=== PATIENT | female | born 1955 | race Two or more races ===

== ENCOUNTER 2025-03-04 07:35 | Inpatient (IN) | payer BC, OTHER ==
[~2025-03-04] VITALS: Ht 177.8 cm; Wt 68.0 kg
--- NOTE | 2025-03-04 08:51 | ED.PDOC ---
GI ASSESSMENT HPI Comments 69-YEAR-OLD FEMALE PRESENTS HERE WITH 9 MONTHS OF DIARRHEA. SHE HAS A COLONOSCOPY SCHEDULED TO WHICH IS APPROXIMATELY MONTH AND A HALF AWAY FROM TODAY. SHE WENT TO DR. VELEZ YESTERDAY AND THEY ADVISED HER TO COME TO THE ER SHE WAS LOOKING FOR SOMETHING TO STOP HER DIARRHEA. PATIENT STATES HOWEVER FOR THE LAST MONTH SHE HAS BEEN EXTREMELY WEAK FEELS UNSTABLE ON HER FEET AND HER DAUGHTER HAS TOE SISTER TO AMBULATE. SHE STATES THIS IS NOT NORMAL FOR HER. SHE STATES ANYTIME SHE EATS OR DRINK ANYTHING IT COMES OUT IN DIARRHEA. NONBLOODY NONBILIOUS DIARRHEA. DENIES ANY FEVER OR CHILLS. NO NAUSEA NO VOMITING. CURRENTLY NO ABDOMINAL PAIN. Chief Complaint: Abdominal Pain Time Seen by MD: 08:24 Reviewed Notes: Nurses Notes, Medications, Allergies Allergies: Coded Allergies: NO KNOWN ALLERGIES (Unverified , 03/04/25) Home Meds Reported Medications Atorvastatin Calcium (ATORVASTATIN CALCIUM) 20 Mg Tab, 1 TAB PO DAILY 03/04/25 Propranolol HCl (Propranolol Hydrochloride) 10 Mg Tab, 1 TAB PO DAILY 03/04/25 Information Source: Patient Mode of Arrival: Ambulatory Timing: Months Duration: Since onset Prehospital treatment: None Quality: None Vomitus: None Stool: Watery Severity: Moderate Recent: None Recent Hx of: None Pain Location: None Modifying Factors: Nothing Associated sign and symptoms: Diarrhea Past Medical History PAST MEDICAL HISTORY: Denies Surgical History: Denies all surgeries IT CONSULTING DIRECTOR History: Denies all IT CONSULTING DIRECTOR Hx Family History Family History: Unknown Social History Smoker: Non-Smoker Alcohol: Denies ETOH Use Drugs: Denies Drug Use Lives In: Home Constitutional: reports: weakness Gastrointestinal: reports: diarrhea All Other Systems: Reviewed and Negative ( PER HPI) Physical Exam Exam Comments Patient with unsteady gait when she ambulates. General Appearance: No Apparent Distress, Other (APPEARS WEAK WITH UNSTEADY GAIT) HEENT: Normal ENT Inspection, Pharynx Normal Neck: Full Range of Motion, Non-Tender, Normal, Normal Inspection Respiratory: Chest Non-Tender, Lungs Clear, No Accessory Muscle Use, No Respiratory Distress, Normal Breath Sounds Cardiovascular: No Edema, No Murmur, No Gallop, Normal Peripheral Pulses, Re gular Rate/Rhythm Breast Exam: Deferred Gastrointestinal: No Organomegaly, Non Tender, No Pulsatile Mass, Normal Bowel Sounds, Soft Genitalia: Deferred Pelvic: Deferred Rectal: Deferred Extremities: No calf tenderness, Normal capillary refill, Normal inspection, Normal range of motion, Non-tender, No pedal edema Musculoskeletal : Apperance: Normal Neurologic: Alert, storage manager II-XII nml as Tested, No Motor Deficits, Normal Affect, Normal Mood, No Sensory Deficits Cerebellar Function: Normal Reflexes: Normal Skin: Dry, Normal Color, Warm Lymphatic: No Adenopathy EKG EKG : Comments Normal sinus rhythm at a rate of [address] changes. Was a procedure done? Was a procedure done?: No GI differential Dx Differential Diagnosis: Other Other Differential Diagnosis UTI, dehydration, electrolyte abnormality, stroke, diarrhea, infectious bowel disease X-Ray, Labs, Meds, VS Vital Signs Date Time Temp Pulse Resp B/P (MAP) Pulse Ox O2 Delivery O2 Flow Rate FiO2 03/04/25 13:45 98.5 60 16 150/82 (104) 96 98.5 03/04/25 11:26 98.2 55 16 160/74 (102) 98 98.2 03/04/25 09:27 58 16 98 Room Air 03/04/25 09:27 58 16 98 Room Air* 0 21 03/04/25 09:27 98.8 58 16 139/87 (104) 98 98.8 03/04/25 08:21 98.6 56 18 150/78 (102) 98 98.6 03/04/25 08:14 51 Lab Test 03/04/25 08:41 03/04/25 08:37 Range/Units White Blood Count 9.2 4.4-10.8 10^3/uL Red Blood Count 4.85 4.0-5.20 10^6/uL Hemoglobin 15.4 12.2-16.2 g/dL Hematocrit 44.5 36.0-46.0 % Mean Corpuscular Volume 91.8 80.0-100.0 fL Mean Corpuscular Hemoglobin 31.7 28.0-32.0 pg Mean Corpuscular Hemoglobin Concent 34.5 32.0-36.0 g/dL Red Cell Distribution Width 13.2 11.8-14.3 % Platelet Count 185 140-450 10^3/uL Mean Platelet Volume 8.8 6.9-10.8 fL Neutrophils (%) (Auto) 64.9 37.0-80.0 % Lymphocytes (%) (Auto) 21.3 10.0-50.0 % Monocytes (%) (Auto) 9.8 0.0-12.0 % Eosinophils (%) (Auto) 2.8 0.0-7.0 % Basophils (%) (Auto) 1.2 0.0-2.0 % Neutrophils # (Auto) 6.0 1.6-8.6 10 ^3/uL Lymphocytes # (Auto) 2.0 0.4-5.4 10 ^3/uL Monocytes # (Auto) 0.9 0-1.3 10 ^3/uL Eosinophils # (Auto) 0.3 0-0.8 10 ^3/uL Basophils # (Auto) 0.1 0-0.2 10 ^3/uL Nucleated Red Blood Cells 0.2 % Sodium Level 145 136-145 mmol/L Potassium Level 3.5 3.5-5.1 mmol/L Chloride Level 113 H 98-107 mmol/L Carbon Dioxide Level 27 20-31 mmol/L Anion Gap 5 5-15 Blood Urea Nitrogen 9 9-23 mg/dL Creatinine 0.80 0.550-1.02 mg/dL Glomerular Filtration Rate Calc 79 >90 mL/min BUN/Creatinine Ratio 11.3 10.0-20.0 Serum Glucose 68 L 74-106 mg/dL Calcium Level 9.1 8.7-10.4 mg/dL Total Bilirubin 0.4 0.2-1.0 mg/dL Aspartate Amino Transferase (AST) 18 13-40 U/L Alanine Aminotransferase (ALT) 20 7-40 U/L Alkaline Phosphatase 82 46-116 U/L Total Protein 7.0 5.7-8.2 g/dL Albumin 4.5 3.2-4.8 g/dL Lipase 36 12-53 U/L Thyroid Stimulating Hormone (TSH) 2.28 0.55-4.78 uIU/mL Urine Color Yellow Yellow Urine Clarity Turbid H Clear Urine pH 5.5 5.0-9.0 Urine Specific [place] 1.020 1.001-1.035 Urine Protein 1+ H Negative Urine Ketones Negative Negative Urine Blood 1+ H Negative /uL Urine Nitrite 2+ H Negative Urine Bilirubin Negative Negative Urine Urobilinogen Normal Negative mg/dL Urine Leukocyte Esterase Trace Negative /uL Urine RBC 4 0 - 4 /hpf Urine Microscopic WBC 14 H 0-5 /HPF Urine Squamous Epithelial Cells Few <5 /hpf Urine Calcium Oxalate Crystals Mod None Seen Urine Bacteria Mod H None Seen /hpf Urine Mucus Moderate None Seen Urine Glucose Normal Normal mg/dL Current Medications Medications (Trade) Dose Ordered Sig/Jacqueline Route Start Time Stop Time Status Last Admin Ondansetron HCl (Zofran) 4 mg ONCE ONCE IV 03/04/25 08:30 03/04/25 08:31 DC 03/04/25 10:02 Sodium Chloride 1,000 ml @ 1,000 mls/hr Q1H ONCE IVB 03/04/25 08:30 03/04/25 09:29 DC 03/04/25 09:56 Ceftriaxone Sodium 50 ml @ 100 mls/hr ONCE ONCE IV 03/04/25 11:15 03/04/25 11:44 DC 03/04/25 11:50 [place] [id number] Ph: [phone] DIAGNOSTIC IMAGING Diagnostic Imaging Report : [id number] Signed PATIENT: CRISTY TAYLOR ACCT: [id number] UNIT: [id number] : 1955 LOC: ER ROOM / BED: / AGE / SEX: 69 / F ADM STATUS: REG ER SERVICE 1213 ORDERING PHYSICIAN: VIRGINIA BAILEY PROCEDURE(s): ABPL - CT AB PEL WO CON-NO ORAL OR IV REASON: abd pain ORDER NUMBER(s): [id number], ACCESSION NUMBER(s): [id number] Indication: abd pain Technique: CT axial images of the abdomen and pelvis are obtained without contrast. Coronal and sagittal reformats were obtained. Radiation Dose Information: CTDI volume is 6.2 mGy. Dose-length product is 307 mGy*cm Comparison: None FINDINGS: There is limited interpretation of the abdomen and pelvis without administration of intravenous contrast. Lung bases demonstrate no pleural effusion. Adrenal glands, spleen, pancreas and liver unremarkable in shape. No CT evidence for cholelithiasis. There is no hydronephrosis, nephrolithiasis. Stomach is partially distended. Small bowel loops are normal in caliber. Moderate volume stool in the colon. No secondary signs for appendicitis. 2 mm appendicolith. Abdominal aortic atherosclerotic disease. Aneurysmal dilatation of the infrarenal abdominal aorta to 2.6 cm. Bladder is partially distended. No free pelvic fluid. No inguinal lymphadenop athy. No aggressive osseous process. IMPRESSION: 1. Moderate volume stool within the colon. 2. Atherosclerotic disease. Aneurysmal dilatation of the infrarenal abdominal aorta to 2.6 cm. 3. Other findings as described. ATED BY: XIN JIEMNES MD DICTATED DATE/TIME: 03/04/25 1251 SIGNED BY: XIN JIMENES MD SIGNED DATE/TIME: 03/04/25 1251 CC: 69-year-old female presents here with unsteady gait. She states that she has been having profuse diarrhea for the last 6 months. She has a colonoscopy scheduled next month. She states however she has been coming increasingly weak. I have given her IV fluids in the ER but she continues to feel unsteady. She has no focal deficits. No slurred speech no facial droop. Considered possible stroke but low suspicion. Blood work has been done which is largely u nremarkable. At this time urine demonstrates positive UTI which could be contributing to her current symptoms. Patient has been started on Rocephin IV. Hospitalist team has been contacted for admission. Time of 1ST Reevaluation: 10:24 Reevaluation 1ST: Unchanged Patient Education/Counseling: Diagnosis, Treatment Family Education/Counseling: No Family Present Departure 1 Departure Time of Disposition: 10:12 Impression: Primary Impression: Urinary tract infection Qualified Codes: N30.01 - Acute cystitis with hematuria Additional Impressions: Diarrhea Qualified Codes: R19.7 - Diarrhea, unspecified Unsteady gait when walking Disposition: ADMITTED INPATIENT Condition: Serious Critical Care Note Critical Care Time?: No Stability Stability form required: No Heart Score Heart Score: Heart Score Response (Comments) Value History N/A 0 EKG N/A 0 Age N/A 0 Risk Factors N/A 0 Troponin N/A 0 Total 0 I personally scribed for NOEL GUPTA MD ([email or web address]) on 03/04/25 at 13:15. Electronically submitted by Bette Buitrago ([email or web address]). I personally scribed for NOEL GUPTA MD ([email or web address]) on 6/6/25 at 13:16. Electronically submitted by Bette Buitrago ([email or web address]). NOEL GUPTA MD Mar 04, 2025 08:51
[2025-03-04 08:52] LABS: Basophils # (auto) 0.1 10 ^3/uL (0-0.2); Basophils % (auto) 1.2 % (0.0-2.0); Eosinophils # (auto) 0.3 10 ^3/uL (0-0.8); Eosinophils % (auto) 2.8 % (0.0-7.0); Hematocrit 44.5 % (36.0-46.0); Hemoglobin 15.4 g/dL (12.2-16.2); Lymphocytes % (auto) 21.3 % (10.0-50.0); Mean Corpuscular Hemoglobin 31.7 pg (28.0-32.0); Mean Corpuscular Hgb Conc. 34.5 g/dL (32.0-36.0); Mean Corpuscular Volume 91.8 fL (80.0-100.0); Monocytes # (auto) 0.9 10 ^3/uL (0-1.3); Monocytes % (auto) 9.8 % (0.0-12.0); Neutrophils % (auto) 64.9 % (37.0-80.0); Nucleated Red Blood Cells % 0.2 %; Platelet Count (auto) 185 10^3/uL (140-450); Red Blood Cells 4.85 10^6/uL (4.0-5.20); Red Cell Distribution Width 13.2 % (11.8-14.3); White Blood Cell 9.2 10^3/uL (4.4-10.8)
[2025-03-04 09:10] LABS: Alanine Aminotransferase 20 U/L (7-40); Albumin 4.5 g/dL (3.2-4.8); Alkaline Phosphatase 82 U/L (46-116); Anion Gap 5 (5-15); Aspartate Aminotransferase 18 U/L (13-40); BUN/Creatinine Ratio 11.3 (10.0-20.0); Calcium 9.1 mg/dL (8.7-10.4); Carbon Dioxide 27 mmol/L (20-31); Lipase 36 U/L (12-53); Potassium 3.5 mmol/L (3.5-5.1)
[2025-03-04 09:11] LABS: Bilirubin, Total 0.4 mg/dL (0.2-1.0)
[2025-03-04 09:12] LABS: Blood Urea Nitrogen 9 mg/dL (9-23); Chloride 113 mmol/L (98-107); Glucose 68 mg/dL (74-106); Sodium 145 mmol/L (136-145)
[2025-03-04 09:16] LABS: Urine Bacteria MOD /hpf (None Seen); Urine Blood 1+ /uL (Negative); Urine Clarity Turbid (Clear); Urine Color Yellow (Yellow); Urine Mucus MODERATE (None Seen); Urine Protein, UAD 1+ (Negative); Urine Squamous Epithelial Cell FEW /hpf (<5); Urine Urobilinogen Normal (Negative); Urine WBC 14 /HPF (0-5); Urine pH 5.5 (5.0-9.0)
[2025-03-04 09:27] VITALS: PULSE 58; RESP 16; O2SAT 98
[2025-03-04] MEDS: SODIUM CHLORIDE 0.9% 1,000 ML IVB ONE (09:56)
[2025-03-04] MEDS: ONDANSETRON HCL 4 MG/2 ML VIAL IV ONE (10:02)
[2025-03-04] MEDS: cefTRIAXone 1GM/50ML D5W 50 ML IV ONE (11:50)
--- NOTE | 2025-03-04 12:53 | DVH ---
Indication: abd pain Technique: CT axial images of the abdomen and pelvis are obtained without contrast. Coronal and sagit porsche reformats were obtained. Radiation Dose Information: CTDI volume is 6.2 mGy. Dose-length product is 307 mGy*cm Comparison: None FINDINGS: There is limited interpretation of the abdomen and pelvis without administration of intravenous contr ast. Lung bases demonstrate no pleural effusion. Adrenal glands, spleen, pancreas and liver unremarkable in shape. No CT evidence for cholelithiasis. There is no hydronephrosis, nephrolithiasis. Stomach is partially distended. Small bowel loops are normal in caliber. Moderate volume stool in the colon. No secondary signs for appendicitis. 2 mm appendicolith. Abdominal aortic atherosclerotic disease. Aneurysmal dilatation of the infrarenal abdominal aorta to 2.6 cm. Bladder is partially distended. No free pelvic fluid. No inguinal lymphadenopathy. No aggressive osseous process. IMPRESSION: 1. Moderate volume stool within the colon. 2. Atherosclerotic disease. Aneurysmal dilatation of the infrarenal abdominal aorta to 2.6 cm. 3. Other findings as described.
[2025-03-04 14:53] VITALS: BP 115/47; PULSE 59; TEMP 97.8; O2SAT 98
[2025-03-04] MEDS ORDERED: ATOR20TA50 PO (14:58)
[2025-03-04] MEDS ORDERED: PROP1TAB51 PO (14:58)
[2025-03-04] MEDS ORDERED: ONDANSETRON HCL 4 MG/2 ML VIAL IV PRN (15:00)
[2025-03-04] MEDS ORDERED: NITROGLYCERIN 0.4 MG SL TAB SL PRN (15:00)
[2025-03-04] MEDS ORDERED: ACETAMINOPHEN 325 MG TAB PO PRN (15:00)
[2025-03-04] MEDS ORDERED: cefTRIAXone 1GM/50ML D5W 50 ML IV SCH (15:00)
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
[2025-03-04 15:30] VITALS: BP 186/81; PULSE 59; RESP 17; TEMP 96.8; O2SAT 96
[2025-03-04] MEDS ORDERED: MORPHINE SULFATE 4 MG/ML SYR/VIAL IV PRN (15:45)
--- NOTE | 2025-03-04 15:56 | DVH ---
EXAM: CT HEAD WITHOUT CONTRAST HISTORY: tremors COMPARISON: None TECHNIQUE: Noncontrast axial CT images of the head were performed. Sagittal and coronal reformatted i mages were obtained. This CT exam was performed using 1 or more of the following dose reduction techn iques: Automated exposure control, adjustment of the mA and/or kv according to patient size, or the u se of iterative reconstruction techniques. Radiation Dose: CTDI volume is 51.77 mGy. Dose-length product is 863.9 mGy*cm FINDINGS: There are Postoperative changes of right temporoparietal craniectomy. No intracranial hemorrhage, mas s, midline shift, hydrocephalus, or evidence of acute large vessel infarct. There is mild decreased a ttenuation in the periventricular white matter. There are Postoperative changes of Right cataract ext raction surgery. The partially-visualized paranasal sinuses are clear. There is fluid density in the bilateral mastoid air cells and left middle ear. The right middle ear is clear. No cranial fracture or scalp edema. IMPRESSION: 1. Chronic ischemic changes without evidence of acute intracranial process. 2. Postoperative changes of right temporoparietal craniectomy. 3. Fluid in the bilateral mastoid air cells and left middle ear which may be due to sterile fluid bradley ronnie mastoiditis and otitis media.
[2025-03-04] MEDS: FLORASTOR (S. BOULARDII) 250 MG CAP PO SCH (16:41)
[2025-03-04] MEDS: HYDROcodone-ACET 5/325MG TAB PO PRN (16:42)
[2025-03-04 18:00] VITALS: BP 191/82; PULSE 59; RESP 15; TEMP 97.7; O2SAT 95
[2025-03-04 20:00] VITALS: BP 178/80; PULSE 51; RESP 18; TEMP 97.8; O2SAT 96
[2025-03-04] MEDS: hydrALAZINE HCL 20 MG/ML VL IV PRN (20:33)
[2025-03-04] MEDS: ATORVASTATIN 20 MG TAB PO SCH (21:21)
[2025-03-04 21:22] VITALS: BP 162/80
[2025-03-05 01:00] VITALS: BP 134/72; PULSE 50; RESP 24; TEMP 98.2; O2SAT 94
[2025-03-05 05:00] VITALS: BP 145/70; PULSE 68; RESP 20; TEMP 97.9; O2SAT 97
[2025-03-05 07:19] LABS: Basophils # (auto) 0.1 10 ^3/uL (0-0.2); Basophils % (auto) 0.7 % (0.0-2.0); Eosinophils # (auto) 0.3 10 ^3/uL (0-0.8); Eosinophils % (auto) 3.6 % (0.0-7.0); Hematocrit 40.6 % (36.0-46.0); Lymphocytes # (auto) 2.5 10 ^3/uL (0.4-5.4); Lymphocytes % (auto) 31.9 % (10.0-50.0); Mean Corpuscular Hemoglobin 31.9 pg (28.0-32.0); Mean Corpuscular Hgb Conc. 34.4 g/dL (32.0-36.0); Mean Corpuscular Volume 92.8 fL (80.0-100.0); Monocytes % (auto) 12.3 % (0.0-12.0); Neutrophils % (auto) 51.5 % (37.0-80.0); Nucleated Red Blood Cells % 0.2 %; Platelet Count (auto) 155 10^3/uL (140-450); Red Blood Cells 4.38 10^6/uL (4.0-5.20); Red Cell Distribution Width 12.9 % (11.8-14.3); White Blood Cell 7.8 10^3/uL (4.4-10.8)
[2025-03-05 07:26] LABS: Alanine Aminotransferase 16 U/L (7-40); Albumin 3.9 g/dL (3.2-4.8); Alkaline Phosphatase 67 U/L (46-116); Anion Gap 8 (5-15); Aspartate Aminotransferase 15 U/L (13-40); BUN/Creatinine Ratio 15.9 (10.0-20.0); Blood Urea Nitrogen 10 mg/dL (9-23); Calcium 9.3 mg/dL (8.7-10.4); Carbon Dioxide 26 mmol/L (20-31); Glucose 79 mg/dL (74-106); Potassium 3.6 mmol/L (3.5-5.1)
[2025-03-05 07:27] LABS: Bilirubin, Total 0.5 mg/dL (0.2-1.0); Chloride 112 mmol/L (98-107); Sodium 146 mmol/L (136-145)
[2025-03-05 09:00] VITALS: BP 131/82; PULSE 62; RESP 16; TEMP 98; O2SAT 98
[2025-03-05] MEDS: cefTRIAXone 1GM/50ML D5W 50 ML IV SCH (10:27)
[2025-03-05] MEDS: PROPRANOLOL HCL 20 MG TAB PO SCH (10:28)
[2025-03-05] MEDS ORDERED: CIPR500T4 PO (12:47)
[2025-03-05 13:00] VITALS: BP 171/88; PULSE 59; RESP 16; TEMP 97.6; O2SAT 97
--- NOTE | 2025-03-06 08:39 | ECG ---
[facility] Test Date: 2025-03-04 Test Time: 08:14:56 Pat Name: CRISTY TAYLOR Department: ER Room: [address] [place] [address] 1 Gender: F Assistant Front Desk Manager: CAMILLA : 1955 Requested By: NOEL GUPTA Order Number: [id number] Reading MD: Tirso Del Rosario Measurements Intervals [place] Rate: 51 P: 56 NM: 136 QRS: 71 QRSD: 201 T: 67 QT: 509 QTc: 469 Interpretive Statements Sinus rhythm Repolarization abnormalities suggest inferior lateral ischemia Electronically Signed On 03-09-2025 20:28:53 PDT by Tirso Del Rosario Please click the below link to view image of tracing.
== END 2025-03-05 13:48 | disposition home or self-care (01) | DRG 690 ==
LOC: ER 07:35 → OVERFLOW 14:50 → EAST 21:26
DX: N30.00 Acute cystitis without hematuria (principal); R62.7 Adult failure to thrive; E78.5 Hyperlipidemia, unspecified; I10 Essential (primary) hypertension; F17.210 Nicotine dependence, cigarettes, uncomplicated; I70.0 Atherosclerosis of aorta; Z68.21 Body mass index [BMI] 21.0-21.9, adult; Z79.899 Other long term (current) drug therapy; Z90.710 Acquired absence of both cervix and uterus
CPT/HCPCS: 36415; 70450; 74176; 80053; 81001; 83690; 84443; 85025; 93005; 96361; 96365; G0378; J2405

== ENCOUNTER 2025-03-22 11:11 | Inpatient (IN) | payer BC ==
[~2025-03-22] VITALS: Ht 177.8 cm; Wt 66.3 kg
[~2025-03-22 11:11] MED LIST: ATOR20TA50 PO; CIPR500T4 PO; PROP1TAB51 PO
--- NOTE | 2025-03-22 11:37 | ED.PDOC ---
HPI Comments This is a 69 year old female CAMMIE presenting to the ED with chief complaint of chest pressure. Patient reports that she has been experiencing generalized weakness over the past 7 months along with associated chest pressure and diarrhea for the past 5 months. Patient relays that she had an abdominal US performed and when seeing her PCP yesterday for results, she was told she had 1 hour to get to the hospital for treatment as a blood clot was found in her aorta. Patient states she did not come to the ED, but waited until now to call 911 for transport. Patient denies any SOB, dizziness, headache, abdominal pain, N/V, dysuria, or syncope. Chief Complaint: General Weakness Time Seen by MD: 11:35 Reviewed Notes: Nurses Notes, Informatics Analyst Notes, Medications, Allergies Allergies: Coded Allergies: NO KNOWN ALLERGIES (Unverified , 03/04/25) Home Meds Active Scripts Ciprofloxacin Hcl (Ciprofloxacin Hcl) 500 Mg Tab, 1 TAB PO BID for 5 Days, #10 TAB Prov:CONNOR SYKES MD 03/05/25 Reported Medications Atorvastatin Calcium (ATORVASTATIN CALCIUM) 20 Mg Tab, 1 TAB PO DAILY 03/04/25 Propranolol HCl (Propranolol Hydrochloride) 10 Mg Tab, 1 TAB PO DAILY 03/04/25 Information Source: Patient, Emergency Med Personnel Mode of Arrival: EMS Severity: Moderate Timing: Months Duration: Since onset Prehospital treatment: None Location: Chest (L) Radiation: No Radiation Quality: Pressure Onset: At Rest Cardiac Risk Factors: None PE Risk Factors: None History of: Similar pain in past Past Medical History PAST MEDICAL HISTORY: Cancer (Cervical) Surgical History: Hysterectomy, Tonsillectomy Surgical History (Other): Cataract surgery PIPE CLEANER History: Denies all PIPE CLEANER Hx Family History Family History: Reviewed,noncontributory to illness, Unknown Social History Smoker: Non-Smoker Alcohol: Denies ETOH Use Drugs: Marijuana Lives In: Home Constitutional: reports: weakness; denies: chills, diaphoresis, fatigue, fever, malaise, sweats, others EENTM: denies: blurred vision, double vision, ear bleeding, ear discharge, ear drainage, ear pain, ear ringing, eye pain, eye redness, hearing loss, mouth pain, mouth swelling, nasal discharge, nose bleeding, nose congestion, nose pain , photophobia, tearing, throat pain, throat swelling, voice changes, others Respiratory: denies: cough, hemoptysis, orthopnea, SOB at rest, shortness of breath, SOB with excertion, stridor, wheezing, others Cardiovascular: reports: chest pain; denies: dizzy spells, diaphoresis, Dyspnea on exertion, edema, irregular heart beat, left arm pain, lightheadedness, palpitations, PND, syncope, others Gastrointestinal: reports: diarrhea; denies: abdomen distended, abdominal pain, blood streaked bowels, constipated, dysphagia, difficulty swallowing, hematemesis, melena, nausea, poor appetite, poor fluid intake, rectal bleeding, rectal pain, vomiting, others Genitourinary: denies: abnormal vagina bleeding, burning, dyspareunia, dysuria, flank pain, frequency, hematuria, incontinence, pain, , vagina discharge, urgency, others Neurological: denies: dizziness, fainting, headache, left sided numbness, left sided weakness, numbness, paresthesia, pre-existing deficit, right sided numbness, right sided weakness, seizure, speech problems, tingling, tremors, weakness, others Musculoskeletal: denies: back pain, gout, joint pain, joint swelling, muscle pain, muscle stiffness, neck pain, others Integumetry: denies: bruises, change in color, change in hair/nails, dryness, laceration, lesions, lumps, rash, wounds, others Allergic/Immunocompromised: denies: Difficulty Healing, Frequent Infections, Hives, Itching, others Hematologic/Lymphatic: denies: anemia, blood clots, easy bleeding, easy bruising, swollen glands, others Endocrine: denies: excessive hunger, excessive sweating, excessive thirst, excessive urination, flushing, intolerance to cold, intolerance to heat, unexplained weight gain, unexplained weight loss, others Psychiatric: denies: anxiety, bipolar disorder, depression, hopeless, panic disorder, schizophrenia, sleepless, suicidal, others All Other Systems: Reviewed and Negative Physical Exam General Appearance: Moderate Distress HEENT: Pale Conjuntivae (L), Pale Conjuntivae (R), Pharynx Normal, TMs Normal Neck: Full Range of Motion, Non-Tender, Normal, Normal Inspection Respiratory: Chest Non-Tender, Lungs Clear, No Accessory Muscle Use, No Respiratory Distress, Normal Breath Sounds Cardiovascular: No Edema, No JVD, No Murmur, No Gallop, Normal Peripheral Pulses, Regular Rate/Rhythm Breast Exam: Deferred Gastrointestinal: No Organomegaly, Non Tender, No Pulsatile Mass, Normal Bowel Sounds, Soft Genitalia: Deferred Pelvic: Deferred Rectal: Deferred Extremities: No calf tenderness, Normal capillary refill, Normal inspection, Normal range of motion, Non-tender, No pedal edema Musculoskeletal : Apperance: Normal Neurologic: distributor advertising material II-XII nml as Tested, Motor Weakness, Normal Affect, Normal Mood, No Sensory Deficits Cerebellar Function: Normal Reflexes: Normal Skin: Dry, Normal Color, Warm Lymphatic: No Adenopathy EKG EKG : Pulse Rate (adult): 46 [place]: Normal Cardiac Rhythm: SB Block: None Hypertrophy: LAE, RVH ST: Normal Was a procedure done? Was a procedure done?: No CP Differential Dx Differential Diagnosis: Angina, Other (CVA) Differential Diagnosis: CHF Differential Diagnosis: Pericarditis X-Ray, Labs, Meds, VS Vital Signs Date Time Temp Pulse Resp B/P (MAP) Pulse Ox O2 Delivery O2 Flow Rate FiO2 03/22/25 13:57 97.7 47 16 142/77 (98) 98 97.7 03/22/25 11:37 46 03/22/25 11:20 46 03/22/25 11:15 98.2 57 17 202/91 (128) 95 98.2 Lab Test 03/22/25 14:34 03/22/25 13:28 Range/Units Troponin I High Sensitivity 3 L < 3 L </=34 ng/L White Blood Count 9.3 4.4-10.8 10^3/uL Red Blood Count 4.89 4.0-5.20 10^6/uL Hemoglobin 15.5 12.2-16.2 g/dL Hematocrit 44.4 36.0-46.0 % Mean Corpuscular Volume 90.9 80.0-100.0 fL Mean Corpuscular Hemoglobin 31.6 28.0-32.0 pg Mean Corpuscular Hemoglobin Concent 34.8 32.0-36.0 g/dL Red Cell Distribution Width 12.8 11.8-14.3 % Platelet Count 205 140-450 10^3/uL Mean Platelet Volume 8.9 6.9-10.8 fL Neutrophils (%) (Auto) 63.4 37.0-80.0 % Lymphocytes (%) (Auto) 25.6 10.0-50.0 % Monocytes (%) (Auto) 8.8 0.0-12.0 % Eosinophils (%) (Auto) 1.0 0.0-7.0 % Basophils (%) (Auto) 1.2 0.0-2.0 % Neutrophils # (Auto) 5.9 1.6-8.6 10 ^3/uL Lymphocytes # (Auto) 2.4 0.4-5.4 10 ^3/uL Monocytes # (Auto) 0.8 0-1.3 10 ^3/uL Eosinophils # (Auto) 0.1 0-0.8 10 ^3/uL Basophils # (Auto) 0.1 0-0.2 10 ^3/uL Nucleated Red Blood Cells 0.0 % D-Dimer, Quantitative 0.99 H 0.0-0.49 mg/L FEU Sodium Level 146 H 136-145 mmol/L Potassium Level 4.3 3.5-5.1 mmol/L Chloride Level 110 H 98-107 mmol/L Carbon Dioxide Level 29 20-31 mmol/L Anion Gap 7 5-15 Blood Urea Nitrogen 12 9-23 mg/dL Creatinine 0.73 0.550-1.02 mg/dL Glomerular Filtration Rate Calc 88 >90 mL/min BUN/Creatinine Ratio 16.4 10.0-20.0 Serum Glucose 98 74-106 mg/dL Calcium Level 10.1 8.7-10.4 mg/dL Current Medications Medications (Trade) Dose Ordered Sig/Jacqueline Route Start Time Stop Time Status Last Admin Aspirin 162 mg ONCE ONCE PO 03/22/25 11:30 03/22/25 11:31 DC 03/22/25 14:07 Chest XR indicates: No acute cardiopulmonary disease. The CAT scan of the chest was done to rule out PE and is negative The CBC and chemistry panel are within normal limits The D-dimer is elevated 0.99 The patient's troponin level x2 is negative The patient was extremely hypertensive initially but is now down to 142/77 The patient is being admitted at this time Images Reviewed?: Images reviewed and evaluated by me Time of 1ST Reevaluation: 16:48 Reevaluation 1ST: Unchanged Patient Education/Counseling: Diagnosis, Treatment, Prognosis Family Education/Counseling: No Family Present Additional Information Reviewed patient's previous visit(s): 03/04/25 for intractable abdominal pain The following tests were ordered, and results were reviewed by me: CBC, BMP, UA, Troponin, D-Dimer, EKG, Chest XR Additional information was gathered from interviewing the following independent historian: EMS I reviewed and agreed with the following test results read by other provider: Chest XR I discussed treatments and results with medical personnel and: PATIENT Comprehensive systems review obtained and negative except for what is stated in the HPI. SEPSIS Sepsis Screen Physician Orders Chest Portable (03/22/25 11:29) Heplock Iv (03/22/25 11:29) Concrete Layer (03/22/25 11:29) Blood Pressure (03/22/25 11:29) Pulse Oximetry (03/22/25 11:29) Urinalysis (03/22/25 11:29) Hydralazine Injection (Apresoline Inject (03/22/25 15:15) Ct Angio Chest Contrast (03/22/25 15:07) Allergies (03/22/25 15:07) Code Status (03/22/25 15:07) Sodium Chloride Lock (Saline Lock Ns) (03/22/25 22:00) Oxygen Per Hour (03/22/25 15:07) Hydrocodone-Acet 5/325mg Tab ([place] 5/32 (03/22/25 15:15) Ondansetron Hcl (Zofran) (03/22/25 15:15) Docusate Sodium Capsule (Colace Capsule) (03/22/25 15:15) Enoxaparin Sodium (Lovenox) (03/23/25 10:00) Fall Risk Precautions In Place QSHIFT (03/22/25 15:07) Complete Blood Count (03/23/25 04:00) Comprehensive Metabolic Panel (03/23/25 04:00) Cardiac Diet-2gna,Lofat,Lochol (03/22/25 Dinner) Condition: Serious (03/22/25 15:07) Acetaminophen Tablet (Tylenol Tablet) (03/22/25 15:15) Maintain Bed Rest (03/22/25 15:07) Sequential Compression Device (03/22/25 ) Famotidine Injection (Pepcid Injection) (03/23/25 10:00) Atorvastatin (Lipitor) (03/22/25 22:00) * Cardiology Consult (03/22/25 15:12) Electrocardigram (03/22/25 16:04) Echo 2d Mode Cardiac Dop (03/22/25 16:04) Admit (03/22/25 16:40) Nitroglycerin Sublingual (Ntrostat Subli (03/22/25 16:45) Morphine Sulfate Injection (03/22/25 16:45) Stat Ekg For Chest Pain (03/22/25 16:40) Notify Md Of Changes From Base (03/22/25 16:40) Fence Gate Assembler For 24 Hours (03/22/25 16:40) Emergency Dysrhythmia Protocol (03/22/25 16:40) Rhythm Strips Once Every Shift (03/22/25 16:40) Oxygen By Nasal Cannula (03/22/25 16:40) Vital Signs Date Time Temp Pulse Resp B/P (MAP) Pulse Ox O2 Delivery O2 Flow Rate FiO2 03/22/25 13:57 97.7 47 16 142/77 (98) 98 97.7 03/22/25 11:37 46 03/22/25 11:20 46 03/22/25 11:15 98.2 57 17 202/91 (128) 95 98.2 Laboratory Tests Test 03/22/25 13:28 White Blood Count 9.3 10^3/uL (4.4-10.8) Medications Medications Dose Ordered Sig/Jacqueline Route Start Time Stop Time Status Last Admin Dose Admin Aspirin 162 mg ONCE ONCE PO 03/22/25 11:30 03/22/25 11:31 DC 03/22/25 14:07 Departure 1 Departure Time of Disposition: 16:48 Impression: Primary Impression: Autonomic dysfunction Disposition: 09 ADMITTED INPATIENT Admit to: Tele Condition: Fair Critical Care Note Critical Care Time?: Yes (35 min-critical care time only) Stability Stability form required: Yes Unstable for transfer: Telemetry monitoring (Telemetry monitoring required), ED Physician Assesment (Clinical assesment) Heart Score Heart Score: Heart Score Response (Comments) Value History Highly Suspicious 2 EKG Repolarization Disturb 1 Age >65 2 Risk Factors 1 or 2 risk factors 1 Troponin N/A 0 Total 6 I personally scribed for ELLIE KIM MD ([email or web address]) on 03/22/25 at 11:37. Electronically submitted by Alphonso Moyer ([email or web address]). I personally scribed for ELLIE KIM MD ([email or web address]) on 03/22/25 at 13:10. Electronically submitted by Alphonso Moyer ([email or web address]). ELLIE KIM MD Mar 22, 2025 11:37
--- NOTE | 2025-03-22 12:01 | DVH ---
EXAM: XY CHEST PORTABLE Indication: cp Technique: Single frontal view of the chest was obtained Comparison: None FINDINGS: Lines and Tubes: None Lungs: No focal consolidation. Pleura: No effusion. No pneumothorax. Cardiomediastinal contours: Unremarkable Bones: No acute osseous abnormality. IMPRESSION: No acute cardiopulmonary disease.
--- NOTE | 2025-03-22 12:12 | ECG ---
[facility] Test Date: 2025-03-22 Test Time: 11:20:08 Pat Name: CRISTY TAYLOR Department: ED Room: 0291T Gender: F Lumber Scaler: ESTEBAN : 1955 Requested By: ELLIE KIM Order Number: [id number] Reading MD: Tirso Del Rosario Measurements Intervals [place] Rate: 46 P: 73 SC: 221 QRS: 81 QRSD: 101 T: 79 QT: 521 QTc: 456 Interpretive Statements Sinus bradycardia Probable left atrial enlargement Consider right ventricular hypertrophy Nonspecific repol abnormality, diffuse leads Electronically Signed On 03-22-2025 22:58:47 PDT by Tirso Del Rosario Please click the below link to view image of tracing.
[2025-03-22 13:44] LABS: Basophils # (auto) 0.1 10 ^3/uL (0-0.2); Basophils % (auto) 1.2 % (0.0-2.0); Eosinophils # (auto) 0.1 10 ^3/uL (0-0.8); Hematocrit 44.4 % (36.0-46.0); Hemoglobin 15.5 g/dL (12.2-16.2); Lymphocytes # (auto) 2.4 10 ^3/uL (0.4-5.4); Lymphocytes % (auto) 25.6 % (10.0-50.0); Mean Corpuscular Hemoglobin 31.6 pg (28.0-32.0); Mean Corpuscular Hgb Conc. 34.8 g/dL (32.0-36.0); Mean Corpuscular Volume 90.9 fL (80.0-100.0); Monocytes # (auto) 0.8 10 ^3/uL (0-1.3); Monocytes % (auto) 8.8 % (0.0-12.0); Neutrophils # (auto) 5.9 10 ^3/uL (1.6-8.6); Neutrophils % (auto) 63.4 % (37.0-80.0); Platelet Count (auto) 205 10^3/uL (140-450); Red Blood Cells 4.89 10^6/uL (4.0-5.20); Red Cell Distribution Width 12.8 % (11.8-14.3); White Blood Cell 9.3 10^3/uL (4.4-10.8)
[2025-03-22 13:55] LABS: Potassium 4.3 mmol/L (3.5-5.1)
[2025-03-22 13:56] LABS: Anion Gap 7 (5-15); Carbon Dioxide 29 mmol/L (20-31)
[2025-03-22 13:57] LABS: Calcium 10.1 mg/dL (8.7-10.4)
[2025-03-22 14:01] LABS: BUN/Creatinine Ratio 16.4 (10.0-20.0); Blood Urea Nitrogen 12 mg/dL (9-23); Glucose 98 mg/dL (74-106)
[2025-03-22 14:02] LABS: Chloride 110 mmol/L (98-107); Sodium 146 mmol/L (136-145)
[2025-03-22] MEDS: ASPirin 81 mg TAB PO ONE (14:07)
[2025-03-22] MEDS ORDERED: ONDANSETRON HCL 4 MG/2 ML VIAL IV PRN (15:15)
[2025-03-22] MEDS ORDERED: DOCUSATE SOD 100 MG CAP PO PRN (15:15)
[2025-03-22] MEDS ORDERED: HYDROcodone-ACET 5/325MG TAB PO PRN (15:15)
--- NOTE | 2025-03-22 16:20 | DVH ---
History: Elevated D-dimer Comparison: None TECHNIQUE: Using a slice CT scanner volumetric data acquisition of chest, abdomen and pelvis was obta ined following intravenous administration of intravenous 100 ml contrast without any reported adverse effects. Axial images were reconstructed and additional sagittal and coronal images were reformatted . 3D/MIP images were performed and reviewed for reporting. Radiation Dose Information: CT Dose: CTDI volume is 5.97 mGy. Dose-length product is 246.83 mGy*cm Findings: No aortic aneurysm. No dissection. Chest: Pulmonary Arteries: There are no filling defects within main pulmonary arteries. There is normal dim ensional of main PA. Lungs: There is no peripheral pulmonary infarction, consolidation, pleural effusion, or right heart s train. There is no pneumothorax or pneumomediastinum. Aorta: There is normal caliber of thoracic aorta without evidence of aortic dissection, intramural he matoma or aneurysm. Lymph Nodes: There is no significant intrathoracic or axillary lymphadenopathy on CT size criteria. Lower Neck: Visualized portions of the thyroid gland are unremarkable. Mediastinum: Heart size is normal. There is no pericardial effusion. Musculoskeletal: No aggressive focal bony lesions, acute fractures or dislocation. Chest wall: Unremarkable Abdomen and Pelvis: Liver: The liver is normal in size. No focal lesions. Normal hepatic vascular enhancement. Gallbladder and Biliary Tree: Unremarkable Spleen: Unremarkable Pancreas: The pancreas is normal in appearance without focal lesions or abnormal enhancement. Adrenal Glands: Unremarkable Kidneys: Kidneys demonstrate normal symmetric enhancement without focal lesions, calculi or hydroneph rosis. Bladder: Unremarkable Bowel: The stomach is grossly normal in appearance. Small bowel and colon are normal in caliber and d istribution. The appendix is not visualized; however, no secondary findings of acute appendicitis rosi ntified. Ascites: Absent Lymphadenopathy: No mesenteric, retroperitoneal or periportal lymphadenopathy. Abdominal Wall and Mesentery: Unremarkable. Vasculature: The visualized abdominal aorta is normal in size and caliber. Abdominal and pelvic vesse ls demonstrate normal enhancement. Pelvic Organs: Unremarkable Musculoskeletal: No aggressive focal bony lesions, acute fractures or dislocation. IMPRESSION: 1. No evidence of acute aneurysm, dissection, or intramural hematoma. 2. No pulmonary emboli
--- NOTE | 2025-03-22 16:42 | DVHHP2 ---
History of Present Illness Reason for Visit: Generalized weakness History of Present Illness The patient is a 69-year-old female with past medical history of cervical cancer who presented to [facility] ED with complaint of generalized weakness. Patient reports he has been having generalized weakness for the past 7 months, associated with chest pressure, diarrhea for the past 5 months, getting worse today that prompted this visit. Patient reports she had abdominal ultrasound with her PCP yesterday and was told she had 1 hour to get to the ED for treatment of blood clot in her aorta. Patient states she did not come to the ED, but waited until today. Patient was seen and evaluated in the ED, laboratory data shows WBC 9.3, platelets 205, sodium 146, potassium 4.3, BUN 12, creatinine 0.73, glucose 98, GFR 88, D-dimer 0.99, calcium 10.1, troponin < 3, blood pressure 202/91 trending down to 142/77, heart rate 50, temperature 97.7 F, O2 saturation 98% on room air. CT Angiography showed no evidence of acute aneurysm, dissection, or intramural hematoma, no pulmonary emboli. Please see medication orders section in the computer. On my assessment, patient denied chest pain, no headache, no dizziness, no diaphoresis, no shortness of breath, no diarrhea at this moment, no nausea, no vomiting, no fever, no chills. Patient was admitted for further evaluation and medical management. Past Medical History Cancer (Cervical), Aorta blood clot Past Surgical History Hysterectomy, Tonsillectomy, Cataract surgery Family History Reviewed, noncontributory to the management of this case. Past Social History The patient lives at home, denies smoking, no alcohol, uses marijuana. Review of Systems Constitutional: Yes: Weakness; No: Fever, Chills, Sweats, Malaise, Other Eyes: No: Pain, Vision change, Conjunctivae inflammation, Eyelid inflammation, Other, Redness ENT: No: Ear pain, Ear discharge, Nose pain, Nose discharge, Nose congestion, Mouth pain, Mouth swelling, Throat pain, Throat swelling, Other Respiratory: No: Cough, Dry, Shortness of breath, SOB with excertion, Wheezing, Hemoptysis, Pleuritic Pain, Sputum, Wheezing, Other Cardiovascular: Chest Pain; No: Palpitations, Orthopnea, Paroxysmal Noc. Dyspnea, Edema, Lt Headedness, Other Gastrointestinal: Diarrhea; No: Nausea, Vomiting, Abdominal Pain, Constipation, Melena, Hematochezia, Other Genitourinary: No Dysuria, No Frequency, No Incontinence, No Hematuria, No Retention, No Other Musculoskeletal: No: other, neck pain, shoulder pain, arm pain, back pain, hand pain, leg pain, foot pain Skin: No: Rash, Lesions, Jaundice, Bruising, Other Neurological: No: Weakness, Numbness, Incoordination, Change in speech, Confusion, Seizures, Other Allergies: Coded Allergies: NO KNOWN ALLERGIES (Unverified , 03/04/25) Medications Current Medications Medications Dose Ordered Sig/Jacqueline Route Start Time Stop Time Status Last Admin Dose Admin Hydralazine HCl 10 mg Q6HP PRN IV 03/22/25 15:15 Sodium Chloride 10 ml Q8HR IV 03/22/25 22:00 Acetaminophen/ Hydrocodone Bitart 1 tab Q4HP PRN PO 03/22/25 15:15 Ondansetron HCl 4 mg Q4HP PRN IV 03/22/25 15:15 Docusate Sodium 100 mg BIDPRN PRN PO 03/22/25 15:15 Enoxaparin Sodium 40 mg DAILY SC 03/23/25 10:00 Acetaminophen 650 mg Q6HP PRN PO 03/22/25 15:15 Famotidine 20 mg DAILY IV 03/23/25 10:00 Atorvastatin Calcium 20 mg HS PO 03/22/25 22:00 Exam Vital Signs Vital Signs Date Time Temp Pulse Resp B/P (MAP) Pulse Ox O2 Delivery O2 Flow Rate FiO2 03/22/25 13:57 97.7 47 16 142/77 (98) 98 97.7 General Appearance: Alert, Oriented X3, Cooperative, No acute distress HEENT: Atraumatic, PERRLA, EOMI, Mucous membr. moist/pink Respiratory: Normal air movement Cardiovascular: Regular rate, Normal S1, Normal S2, No murmurs Abdominal: Normal bowel sounds, Soft, No tenderness, No hepatospenomegaly, No masses Extremities: No clubbing, No cyanosis, No edema, Normal pulses, No tenderness/swelling Skin: No rashes, No breakdown, No significant lesion Neuro: Normal speech, Normal tone, Sensation intact, Cranial nerves 3-12 NL, Reflexes 2+, Other (Generalized weakness) Psych/Mental Status: Mental status NL, Mood NL Labs/Xrays Labs Test 03/22/25 14:34 03/22/25 13:28 Range/Units Troponin I High Sensitivity 3 L </=34 ng/L White Blood Count 9.3 4.4-10.8 10^3/uL Red Blood Count 4.89 4.0-5.20 10^6/uL Hemoglobin 15.5 12.2-16.2 g/dL Hematocrit 44.4 36.0-46.0 % Mean Corpuscular Volume 90.9 80.0-100.0 fL Mean Corpuscular Hemoglobin 31.6 28.0-32.0 pg Mean Corpuscular Hemoglobin Concent 34.8 32.0-36.0 g/dL Red Cell Distribution Width 12.8 11.8-14.3 % Platelet Count 205 140-450 10^3/uL Mean Platelet Volume 8.9 6.9-10.8 fL Neutrophils (%) (Auto) 63.4 37.0-80.0 % Lymphocytes (%) (Auto) 25.6 10.0-50.0 % Monocytes (%) (Auto) 8.8 0.0-12.0 % Eosinophils (%) (Auto) 1.0 0.0-7.0 % Basophils (%) (Auto) 1.2 0.0-2.0 % Neutrophils # (Auto) 5.9 1.6-8.6 10 ^3/uL Lymphocytes # (Auto) 2.4 0.4-5.4 10 ^3/uL Monocytes # (Auto) 0.8 0-1.3 10 ^3/uL Eosinophils # (Auto) 0.1 0-0.8 10 ^3/uL Basophils # (Auto) 0.1 0-0.2 10 ^3/uL Nucleated Red Blood Cells 0.0 % D-Dimer, Quantitative 0.99 H 0.0-0.49 mg/L FEU Sodium Level 146 H 136-145 mmol/L Potassium Level 4.3 3.5-5.1 mmol/L Chloride Level 110 H 98-107 mmol/L Carbon Dioxide Level 29 20-31 mmol/L Anion Gap 7 5-15 Blood Urea Nitrogen 12 9-23 mg/dL Creatinine 0.73 0.550-1.02 mg/dL Glomerular Filtration Rate Calc 88 >90 mL/min BUN/Creatinine Ratio 16.4 10.0-20.0 Serum Glucose 98 74-106 mg/dL Calcium Level 10.1 8.7-10.4 mg/dL PATIENT: CRISTY TAYLOR ACCT: [id number] UNIT: [id number] : 1955 LOC: ER ROOM / BED: / AGE / SEX: 69 / F ADM STATUS: REG ER SERVICE 1506 ORDERING PHYSICIAN: LIBORIO COLEMAN DNP PROCEDURE(s): CTACH - CT ANGIO CHEST CONTRAST REASON: Elevated D-dimer ORDER NUMBER(s): [id number], ACCESSION NUMBER(s): [id number] History: Elevated D-dimer Comparison: None TECHNIQUE: Using a slice CT scanner volumetric data acquisition of chest, abdomen and pelvis was obtained following intravenous administration of intravenous 100 ml contrast without any reported adverse effects. Axial images were reconstructed and additional sagittal and coronal images were reformatted. 3D/MIP images were performed and reviewed for reporting. Radiation Dose Information: CT Dose: CTDI volume is 5.97 mGy. Dose-length product is 246.83 mGy*cm Findings: No aortic aneurysm. No dissection. Chest: Pulmonary Arteries: There are no filling defects within main pulmonary arteri es. There is normal dimensional of main PA. Lungs: There is no peripheral pulmonary infarction, consolidation, pleural effusion, or right heart strain. There is no pneumothorax or pneumomediastinum. Aorta: There is normal caliber of thoracic aorta without evidence of aortic dissection, intramural hematoma or aneurysm. Lymph Nodes: There is no significant intrathoracic or axillary lymphadenopathy on CT size criteria. Lower Neck: Visualized portions of the thyroid gland are unremarkable. Mediastinum: Heart size is normal. There is no pericardial effusion. Musculoskeletal: No aggressive focal bony lesions, acute fractures or dislocatio n. Chest wall: Unremarkable Abdomen and Pelvis: Liver: The liver is normal in size. No focal lesions. Normal hepatic vascular e nhancement. Gallbladder and Biliary Tree: Unremarkable Spleen: Unremarkable Pancreas: The pancreas is normal in appearance without focal lesions or abnormal enhancement. Adrenal Glands: Unremarkable Kidneys: Kidneys demonstrate normal symmetric enhancement without focal lesions, calculi or hydronephrosis. Bladder: Unremarkable Bowel: The stomach is grossly normal in appearance. Small bowel and colon are normal in caliber and distribution. The appendix is not visualized; however, no secondary findings of acute appendicitis identified. Ascites: Absent Lymphadenopathy: No mesenteric, retroperitoneal or periportal lymphadenopathy. Abdominal Wall and Mesentery: Unremarkable. Vasculature: The visualized abdominal aorta is normal in size and caliber. Abdominal and pelvic vessels demonstrate normal enhancement. Pelvic Organs: Unremarkable Musculoskeletal: No aggressive focal bony lesions, acute fractures or dislocation. IMPRESSION: 1. No evidence of acute aneurysm, dissection, or intramural hematoma. 2. No pulmonary emboli ORDERING PHYSICIAN: ELLIE KIM MD PROCEDURE(s): CXRP - CHEST PORTABLE REASON: cp ORDER NUMBER(s): [id number], ACCESSION NUMBER(s): [id number] EXAM: XY CHEST PORTABLE Indication: cp Technique: Single frontal view of the chest was obtained Comparison: None FINDINGS: Lines and Tubes: None Lungs: No focal consolidation. Pleura: No effusion. No pneumothorax. Cardiomediastinal contours: Unremarkable Bones: No acute osseous abnormality. IMPRESSION: No acute cardiopulmonary disease. Assessment/Plan Assessment/Plan Autonomic dysfunction Elevated D-dimer Sinus bradycardia Hypertensive urgency Generalized weakness Plan 1. Admit to telemetry unit 2. Breathing treatment 3. Pain control management 4. Management of fluids and electrolytes 5. Consultation for Cardiology 6. Diagnostic tests CT angiography 7. DVT prophylaxis on Lovenox 8. Repeat labs CBC, CMP in a.m. 9. Continue with current medical management 10. Treatment plan discussed with patient and RN. Patient verbalized understanding. Plan discussed with: Patient, Other (RN) My Orders Orders - LIBORIO COLEMAN DNP Procedure Category Date Status Time Hydralazine Injection PHA 03/22/25 In Process (Apresoline Inject 15:[address] 03/22/25 Resulted Contrast 15:07 Allergies JAMES 03/22/25 In Process 15:07 Code Status CODE 03/22/25 Transmitted 15:07 Sodium Chloride Lock PHA 03/22/25 In Process (Saline Lock Ns) 22:00 Oxygen Per Hour RT 03/22/25 Transmitted 15:07 Hydrocodone-Acet PHA 03/22/25 In Process 5/325mg Tab (Grahn 15:15 Ondansetron Hcl PHA 03/22/25 In Process (Zofran) 15:15 Docusate Sodium PHA 03/22/25 In Process Capsule (Colace 15:15 Enoxaparin Sodium PHA 03/23/25 In Process (Lovenox) 10:00 Fall Risk Precautions JAMES 03/22/[address] 15:07 Complete Blood Count LAB 03/23/25 Verified 04:00 Comprehensive LAB 03/23/25 Verified Metabolic Panel 04:00 Cardiac DIET 03/22/25 Transmitted Diet-2gna,Lofat,Lochol Dinner Condition: Serious JAMES 03/22/25 In Process 15:07 Acetaminophen Tablet PHA 03/22/25 In Process (Tylenol Tablet) 15:15 Maintain Bed Rest JAMES 03/22/25 In Process 15:07 Sequential JAMES 03/22/25 In Process Compression Device Famotidine Injection PHA 03/23/25 In Process (Pepcid Injection) 10:00 Atorvastatin (Lipitor) PHA 03/22/25 In Process 22:00 * Cardiology Consult CONS 03/22/25 Transmitted 15:12 Admit ADMIT 03/22/25 Verified 16:40 Nitroglycerin [facility] 03/22/25 Verified Sublingual (Ntrostat 16:45 Morphine Sulfate PHA 03/22/25 Verified Injection 16:45 Stat Ekg For Chest [facility] 03/22/25 Verified Pain 16:40 Notify Md Of Changes [facility] 03/22/25 Verified From Base 16:40 Stunt Person For [facility] 03/22/25 Verified 24 Hours 16:40 Emergency Dysrhythmia [facility] 03/22/25 Verified Protocol 16:40 Rhythm Strips Once [facility] 03/22/25 Verified Every Shift 16:40 Oxygen By Nasal 03/22/25 Verified Cannula 16:40 Problem List: (1) Autonomic dysfunction (2) Elevated d-dimer (3) Sinus bradycardia (4) Hypertensive urgency (5) Generalized weakness Date of Service: Mar 22, 2025 Billing Provider: LIBORIO COLEMAN DNP Common Visit Codes: [id number] INP/OBS CARE (HIGH) LIBORIO COLEMAN DNP Mar 22, 2025 16:42
[2025-03-22] MEDS ORDERED: NITROGLYCERIN 0.4 MG SL TAB SL PRN (16:45)
[2025-03-22] MEDS ORDERED: MORPHINE SULFATE INJ 2 MG/ml SYRG IV PRN (16:45)
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
[2025-03-22] MEDS: IOHEXOL 350 MG/ML 100ML IJ ONE (17:16)
[2025-03-22 17:48] VITALS: PULSE 50; RESP 18; O2SAT 99
[2025-03-22] MEDS: SODIUM CHLORIDE 0.9% 500 ML IV ONE (18:01)
[2025-03-22] MEDS: hydrALAZINE HCL 20 MG/ML VL IV PRN (18:13)
[2025-03-22 19:30] VITALS: PULSE 69; RESP 12; O2SAT 99
[2025-03-22] MEDS: amLODIPine BESYLATE 5 MG TAB PO ONE (19:52)
[2025-03-22] MEDS: ATORVASTATIN 20 MG TAB PO SCH (22:00)
[2025-03-22] MEDS: SODIUM CHLOR 0.9% PF (SALINE LOCK) 10ML VIAL/SYR IV SCH (22:03)
[2025-03-22 22:17] VITALS: BP 141/71; PULSE 61; RESP 18; TEMP 98; O2SAT 97
--- NOTE | 2025-03-22 22:43 | DVH ---
Left Lower Extremity Arterial Duplex Clinical History: US Low Ext Art Duplex. Evaluate for aneurysmal dilations in the groin vessels Comparison: None Technique: Duplex Doppler evaluation including color Doppler and spectral/pulsed waveform analysis of the lower extremity arteries was performed. Findings: LEFT: Peak systolic velocities are as follows: CORPORATE SCHEDULER 97 cm/s biphasic waveform Deep femoral 74 cm/s biphasic waveform SFA proximal 85 cm/s biphasic waveform SFA mid-portion 91 cm/s triphasic waveform SFA distal 96 cm/s triphasic waveform Popliteal 81 cm/s biphasic waveform Posterior tibial 77 cm/s biphasic waveform Anterior tibial artery distal: 91 cm/sec ; biphasic waveform Dorsalis pedis 72 cm/s The waveforms are biphasic and triphasic waveform. IMPRESSION: 1. No hemodynamically significant stenosis based on peak systolic velocity criteria. 2. No occlusion left lower extremity triphasic and biphasic waveform. 3. REFERENCE VALUES, [facility]) vascular Imaging Lab Criteria: Peak systolic velocity r anges (in cm/sec) are as follows: 4. <150 cm/s - <20 % stenosis 5. 150-200 cm/s - 20-49% stenosis 6. 200-300 cm/s - 50-75% stenosis 7. >300 cm/s -> 75% stenosis
--- NOTE | 2025-03-22 22:55 | DVHSR ---
APPROVED REPORT EXAM: Two-dimensional and M-mode echocardiogram with Doppler and color Doppler. Blood Pressure: 142/77 mmHg INDICATION Eval for structural heart disease RISK FACTORS Height: 5'9", Weight: 146 DIMENSIONS LVDd4.3 (3.8-5.7cm)LA (2D)3.2 (1.9-4.0cm)Aortic Root3.6 (2.0-3.7cm) LVDs2.9 (2.5-4.0cm)LA (MM) (1.9-4.0cm)Aortic Cusp Exc1.9 (1.5-2.0cm) EF (%) 60.0 (55-70%)Rt. Atrium3.8 (1.9-4.0cm)Asc. Aorta cm IVSd1.4 (0.7-1.1cm)RV (D) (1.8-2.4cm) PWd1.0 (0.7-1.1cm) Mitral Valve MitralMitral Stenosis E wave0.60m/sMV Mean GR.mmHg A wave0.92m/sMV Peak GR.mmHg E/A ratio0.72D MVAcm2 DECEL [id number] 1/2 Timems Aortic Valve Aortic ValveAortic Stenosis V11.34m/Sherri Mean GR.3mmHg V21.42m/Sherri Peak GR.8mmHg LVOT Diameter2.0 (1.8-2.4cm)Doppler AVA2.96cm2 Pulmonic Valve V20.81m/s Tricuspid Valve TR Velocity2.60m/s [id number] Other Information Quality : Rhythm : Bradycardia Technically limited study due to body habitus. Conclusion NORMAL LV EF AND IS 65% NORMAL VALVES NO EFFUSION NORMAL RV FUNCTION
--- NOTE | 2025-03-22 22:59 | DVH ---
US AORTA HISTORY: Evaluate for abdominal aortic aneurysm COMPARISON: Pelvis CT abdomen and pelvis from 03/04/2025 TECHNIQUE: Transverse and longitudinal sonographic images were obtained of the abdominal aorta and co mmon iliac arteries with additional color and spectral Doppler images of the abdominal aorta. FINDINGS: Tthere is moderate calcified atherosclerotic plaque throughout the visualized aortoiliac vessels. There is ectasia of the distal abdominal aorta for length of 5.9 cm. The distal abdominal aorta measu res up to 2.5 cm AP and 2.8 cm transverse. Proximal abdominal aorta measures 2.1 cm AP and 2.1 cm transverse. Mid abdominal aorta measures 1.8 cm AP and 1.9 cm transverse. The right common iliac artery measures 1 cm in the left common iliac artery measures 1 cm. Other: None IMPRESSION: 1. Ectasia of the distal abdominal aorta measuring 2.5 cm AP and 2.8 cm transverse. 2. Ectatic distal abdominal aortic measures a distance of 5.9 cm in length. 3. No abdominal aortic aneurysm. 4. Moderate calcified plaque in the aortoiliac vessels.
[2025-03-23] VITALS (7 sets, daily range): BP systolic 102–145; BP diastolic 63–89; PULSE 54–66; RESP 16–20; TEMP 97.8–98.7; O2SAT 94–98
[2025-03-23] MEDS: ACETAMINOPHEN 325 MG TAB PO PRN (01:04)
[2025-03-23 06:52] LABS: Basophils # (auto) 0.1 10 ^3/uL (0-0.2); Eosinophils # (auto) 0.2 10 ^3/uL (0-0.8); Hematocrit 42.2 % (36.0-46.0); Hemoglobin 14.6 g/dL (12.2-16.2); Lymphocytes # (auto) 2.3 10 ^3/uL (0.4-5.4); Lymphocytes % (auto) 30.1 % (10.0-50.0); Mean Corpuscular Hemoglobin 31.4 pg (28.0-32.0); Mean Corpuscular Hgb Conc. 34.7 g/dL (32.0-36.0); Mean Corpuscular Volume 90.3 fL (80.0-100.0); Monocytes % (auto) 12.4 % (0.0-12.0); Neutrophils # (auto) 4.2 10 ^3/uL (1.6-8.6); Neutrophils % (auto) 53.5 % (37.0-80.0); Nucleated Red Blood Cells % 0.1 %; Platelet Count (auto) 178 10^3/uL (140-450); Red Blood Cells 4.67 10^6/uL (4.0-5.20); Red Cell Distribution Width 12.7 % (11.8-14.3); White Blood Cell 7.8 10^3/uL (4.4-10.8)
[2025-03-23 07:11] LABS: Alanine Aminotransferase 11 U/L (7-40); Alkaline Phosphatase 68 U/L (46-116); Anion Gap 7 (5-15); Aspartate Aminotransferase 18 U/L (<34); BUN/Creatinine Ratio 16.9 (10.0-20.0); Blood Urea Nitrogen 12 mg/dL (9-23); Calcium 9.1 mg/dL (8.7-10.4); Carbon Dioxide 26 mmol/L (20-31); Glucose 89 mg/dL (74-106); Sodium 143 mmol/L (136-145); Total Protein 6.3 g/dL (5.7-8.2)
[2025-03-23 07:12] LABS: Bilirubin, Total 0.7 mg/dL (0.2-1.0)
[2025-03-23 07:13] LABS: Chloride 110 mmol/L (98-107); Potassium 3.4 mmol/L (3.5-5.1)
[2025-03-23] MEDS: ENOXAPARIN SOD 40 MG/0.4 ML SYRINGE SC SCH (10:10)
[2025-03-23] MEDS: amLODIPine BESYLATE 5 MG TAB PO SCH (10:11)
[2025-03-23] MEDS: FAMOTIDINE (10MG/ML) 2ML VL IV SCH (10:11)
[2025-03-23] MEDS: POTASSIUM CHL 20 Meq TABLET PO ONE (14:18)
--- NOTE | 2025-03-23 14:47 | DVHDS2 ---
Discharge Summary Date of Admission Mar 22, 2025 at 16:40 Date of Discharge: Mar 23, 2025 Admitting Diagnosis Autonomic dysfunction Labs/Diagnostic Data: Laboratory Results Test 03/23/25 06:26 03/22/25 14:34 03/22/25 13:28 White Blood Count 7.8 10^3/uL (4.4-10.8) Red Blood Count 4.67 10^6/uL (4.0-5.20) Hemoglobin 14.6 g/dL (12.2-16.2) Hematocrit 42.2 % (36.0-46.0) Mean Corpuscular Volume 90.3 fL (80.0-100.0) Mean Corpuscular Hemoglobin 31.4 pg (28.0-32.0) Mean Corpuscular Hemoglobin Concent 34.7 g/dL (32.0-36.0) Red Cell Distribution Width 12.7 % (11.8-14.3) Platelet Count 178 10^3/uL (140-450) Mean Platelet Volume 8.7 fL (6.9-10.8) Neutrophils (%) (Auto) 53.5 % (37.0-80.0) Lymphocytes (%) (Auto) 30.1 % (10.0-50.0) Monocytes (%) (Auto) 12.4 % (0.0-12.0) Eosinophils (%) (Auto) 3.0 % (0.0-7.0) Basophils (%) (Auto) 1.0 % (0.0-2.0) Neutrophils # (Auto) 4.2 10 ^3/uL (1.6-8.6) Lymphocytes # (Auto) 2.3 10 ^3/uL (0.4-5.4) Monocytes # (Auto) 1.0 10 ^3/uL (0-1.3) Eosinophils # (Auto) 0.2 10 ^3/uL (0-0.8) Basophils # (Auto) 0.1 10 ^3/uL (0-0.2) Nucleated Red Blood Cells 0.1 % Sodium Level 143 mmol/L (136-145) Potassium Level 3.4 mmol/L (3.5-5.1) Chloride Level 110 mmol/L (98-107) Carbon Dioxide Level 26 mmol/L (20-31) Anion Gap 7 (5-15) Blood Urea Nitrogen 12 mg/dL (9-23) Creatinine 0.71 mg/dL (0.550-1.02) Glomerular Filtration Rate Calc 91 mL/min (>90) BUN/Creatinine Ratio 16.9 (10.0-20.0) Serum Glucose 89 mg/dL (74-106) Calcium Level 9.1 mg/dL (8.7-10.4) Total Bilirubin 0.7 mg/dL (0.2-1.0) Aspartate Amino Transferase (AST) 18 U/L (<34) Alanine Aminotransferase (ALT) 11 U/L (7-40) Alkaline Phosphatase 68 U/L (46-116) Total Protein 6.3 g/dL (5.7-8.2) Albumin 4.0 g/dL (3.2-4.8) Troponin I High Sensitivity 3 ng/L (</=34) D-Dimer, Quantitative 0.99 mg/L FEU (0.0-0.49) Other Laboratory Tests 03/23/25 06:26 Brief Hx & Hospital Course: History of Present Illness The patient is a 69-year-old female with past medical history of cervical cancer who presented to [facility] ED with complaint of generalized weakness. Patient reports he has been having generalized weakness for the past 7 months, associated with chest pressure, diarrhea for the past 5 months, getting worse today that prompted this visit. Patient reports she had abdominal ultrasound with her PCP yesterday and was told she had 1 hour to get to the ED for treatment of blood clot in her aorta. Patient states she did not come to the ED, but waited until today. Patient was seen and evaluated in the ED, laboratory data shows WBC 9.3, platelets 205, sodium 146, potassium 4.3, BUN 12, creatinine 0.73, glucose 98, GFR 88, D-dimer 0.99, calcium 10.1, troponin < 3, blood pressure 202/91 trending down to 142/77, heart rate 50, temperature 97.7 F, O2 saturation 98% on room air. CT Angiography showed no evidence of acute aneurysm, dissection, or intramural hematoma, no pulmonary emboli. Please see medication orders section in the computer. On my assessment, patient denied chest pain, no headache, no dizziness, no diaphoresis, no shortness of breath, no diarrhea at this moment, no nausea, no vomiting, no fever, no chills. Patient was admitted for further evaluation and medical management. Course of hospitalization: Patient had CT scan of the chest, abdomen, pelvis. Patient also had abdominal ultrasound to rule out aortic aneurysm. Patient also had arterial ultrasound of the left lower extremity. All findings were negative for any type of aneurysm, dissection, or intramural hematoma. Patient was found to be hypertensive as well as bradycardic. Blood pressure improved with antihypertensives. Discussion was made with the patient regarding the use of propranolol for her reported tremors. Patient was educated to take her heart rate before administering propranolol. All tests were discussed in detail with the patient. Patient will be discharged home and instructed to follow up with her PCP at Dr. [facility] clinic. She was also instructed to stop smoking, for which she will consider. Physical examination General: Alert and Oriented x3. No acute distress. Well-nourished. Eyes: EOMI. Anicteric. HENT: Moist mucous membranes. Lungs: Clear to auscultation bilaterally. No accessory muscle use. Cardiovascular: Regular rate and rhythm. No murmur. No JVD. Abdomen: Soft, non-tender and non-distended. No palpable masses. Extremities: No edema. Non-tender. Skin: No rashes or lesions. Warm. Neurologic: No focal neurological deficits. CN II-XII grossly intact, but not individually tested. Psychiatric: Cooperative. Appropriate mood and affect. Total time spent with patient discussing and formulating plan of care: 35 minutes. This medical document was created using an electronic medical record system with [employer] dictation system. Although this document has been carefully reviewed, there may still be some phonetic and typographical errors. These areas are purely typographical due to imperfections of the software programs, and do not reflect any compromise in the patient's medical care. Condition at Discharge: Fair Final Diagnosis/Problems List Hypertensive crisis Secondary diagnosis: Aortic aneurysm ruled out Nicotine dependence Essential tremors Discharge Disposition: Home Discharge Instruct/Medications Diet: Regular Activity: No Restrictions, As Tolerated Follow Up/Referral: Follow up with PCP, Dr. Brown Medications: Continue all home medications. Hold propranolol for heart rate less than 65 beats per minute 36 Discharge Statement: "Patient was advised to return to the ER or call 911 if any headaches, dizziness, shortness of breath, chest pain, abdominal pain, bleeding, fevers, or worsening of medical condition. Patient was counseled about treatment plan, medications, possible side effects, patientverbalized understanding. All questions were answered to the best of my ability. This discharge took greater then 30 minutes in planning, reviewing documentation, counseling the patient, and discussing with other team members." ASSESSMENT ASSESSMENT Assessment Hypertensive crisis Date of Service: Mar 23, 2025 Billing Provider: LIBBY SMITH NP Common Visit Codes: 98650-IEB/OBS DISCH DAY >30min LIBBY SMITH NP Mar 23, 2025 14:47
[2025-03-23] MEDS: PNEUMOCOCCAL VACC POLYS 25 MCG/0.5 ML VIAL IM ONE (16:38)
[2025-03-24] MEDS ORDERED: POTASSIUM CHL 20 Meq TABLET PO SCH (10:00)
== END 2025-03-23 17:30 | disposition home or self-care (01) | DRG 305 ==
LOC: EDBD 11:11 → ER 11:11 → OVERFLOW 16:40 → TELE-WESTW 22:15
PROVIDERS: ADMIT Nurse Practitioner Acute Care; ATTEND Nurse Practitioner Acute Care
DX: I16.9 Hypertensive crisis, unspecified (principal); E78.5 Hyperlipidemia, unspecified; F17.200 Nicotine dependence, unspecified, uncomplicated; G25.0 Essential tremor; Z90.710 Acquired absence of both cervix and uterus; Z79.2 Long term (current) use of antibiotics; Z79.899 Other long term (current) drug therapy; Z85.41 Personal history of malignant neoplasm of cervix uteri
CPT/HCPCS: 36415; 71045; 71275; 76775; 80048; 80053; 84484; 85025; 85379; 93005; 93306; 93926; 96374; 99291; G0378; J3490